=== PATIENT | female | born 1995 | race Two or more races ===

== ENCOUNTER 2017-09-14 15:30 | Inpatient (IN) | payer OTHER ==
[2017-09-14] MEDS ORDERED: TERBUTALINE SULFATE 1 MG/1 ML VIAL SQ ONE ×3 (16:00→16:20)
[2017-09-14] MEDS ORDERED: DEXTROSE 5%-LACTATED RINGERS 500 ML IV ONE (16:00)
[2017-09-14] MEDS ORDERED: DEXTROSE 5%-LACTATED RINGERS 1,000 ML IV ONE ×2 (17:00→19:00)
[2017-09-14] MEDS ORDERED: AMPICILLIN SODIUM 250 MG VIAL IVPUSH ONE (21:20)
[2017-09-14] MEDS ORDERED: AMPICILLIN - 2 GM in SODIUM CHLORIDE 100 ML IVPB ONE (22:00)
[2017-09-14] MEDS ORDERED: AMPICILLIN SODIUM 2 GM VIAL ONE (22:10)
[2017-09-14] MEDS ORDERED: DEXTROSE 5%-LACTATED RINGERS 1,000 ML IV SCH (23:00)
[2017-09-15 01:08] VITALS: BMI 25.9
[2017-09-15] MEDS ORDERED: AMPICILLIN SODIUM 1 GM VIAL ONE ×3 (01:54→09:41)
[2017-09-15] MEDS: AMPICILLIN - 1 GM in SODIUM CHLORIDE 100 ML IVPB SCH ×3 (02:00→09:48)
[2017-09-15] MEDS ORDERED: BUTORPHANOL TARTRATE 1 MG/ML VIAL ONE ×2 (03:23)
[2017-09-15] MEDS ORDERED: PROMETHAZINE HCL 25 MG/1 ML VIAL ONE (03:23)
[2017-09-15] MEDS ORDERED: BUTORPHANOL TARTRATE 1 MG/ML VIAL IVPB ONE (03:30)
[2017-09-15] MEDS ORDERED: PROMETHAZINE HCL 25 MG/1 ML VIAL IVPB ONE (03:30)
[2017-09-15 03:38] LABS: BASO % 0.1 % (0-2.0); EOS % 0.6 % (0-4.5); HEMATOCRIT 36.2 % (32.4-45.2); HEMOGLOBIN 12.5 GM/dL (10.7-15.3); LYMPH % 16.5 % (8-40); MCH 28.9 pg (25.7-33.7); MCHC 34.4 g/dl (32.0-36.0); MEAN PLT VOLUME 10.3 fl (7.5-11.1); MONO % 7.3 % (3.8-10.2); NEUT % 75.5 % (42.8-82.8); PLATELET COUNT 144 K/MM3 (134-434); RBC 4.31 M/mm3 (3.60-5.2); RDW 13.7 % (11.6-15.6); WHITE BLOOD COUNT 8.5 K/mm3 (4.0-10.0)
--- NOTE | 2017-09-15 03:49 | HP ---
Past Medical History - Admission Chief Complaint: Labor pain History of Present Illness: 22 yo , @ 36 weeks gestation, EDC 10/13/17, admitted for labor pain. Upon admission she was 5cm dilated with intact membrane. History Source: Patient Limitations to Obtaining History: No Limitations - Past Medical History ...: 2 ...Para: 0 ...Term: 0 ...: 0 ...Spon : 0 ...Induced : 1 ...Multiple Gestation: 0 ...LMP: 01/06/17 ... Weeks Gestation by Dates: 36.0 ...EDC by Dates: 10/13/17 ...EDC by Sono: 10/11/17 - Past Surgical History Past Surgical History: Yes: Appendectomy Hx Myomectomy: No Hx Transabdominal Cerclage: No - Smoking History Smoking history: Never smoked - Alcohol/Substance Use Hx Alcohol Use: No History of Substance Use: reports: None - Social History Usual Living Arrangement: Yes: With Parent History of Recent Travel: No Home Medications - Allergies Allergies/Adverse Reactions: Allergies Allergy/AdvReac Type Severity Reaction Status Date / Time No Known Drug Allergies Allergy Verified 09/14/17 16:26 - Home Medications Home Medications: Ambulatory Orders Vitamins (Sjr) - 1 tab PO DAILY 07/15/17 Ferrous Sulfate [Iron] 325 mg PO DAILY 09/13/17 Family Disease History - Family Disease History Family History: Unremarkable Review of Systems - Review of Systems Constitutional: reports: No Symptoms Eyes: reports: No Symptoms HENT: reports: No Symptoms Neck: reports: No Symptoms Cardiovascular: reports: No Symptoms Respiratory: reports: No Symptoms Gastrointestinal: reports: No Symptoms Genitourinary: reports: Pain Breasts: reports: No Symptoms Reported Musculoskeletal: reports: No Symptoms Integumentary: reports: No Symptoms Neurological: reports: No Symptoms Endocrine: reports: No Symptoms Hematology/Lymphatic: reports: No Symptoms Psychiatric: reports: No Symptoms Pain Intensity: 8 Physical Exam - Maternity Vital Signs: Vital Signs Temperature 98.9 F 09/15/17 00:00 Pulse Rate 105 H 09/15/17 00:00 Respiratory Rate 18 09/15/17 00:00 Blood Pressure 131/62 09/15/17 00:00 O2 Sat by Pulse Oximetry (%) Constitutional: Yes: Well Nourished Eyes: Yes: Conjunctiva Clear HENT: Yes: Atraumatic Neck: Yes: Supple Cardiovascular: Yes: Regular Rate and Rhythm Lungs: Clear to auscultation - Abdominal Exam/OB Number of Fetuses: Single Presentation: Vertex Contractions: Yes Regularity: Irregular Intensity: Mod/Strong - Vaginal Exam/OB Dilatation (cm): 5 Effacement (%): 90 Amniotic Membrane Status: Intact Presentation: Vertex/Position Station: -2 - Physical Exam ...Motor Strength: WNL Psychiatric: Yes: Alert, Oriented - Labs Lab Results: CBC, BMP 09/15/17 00:45 Problem List - Problems (1) delivery, delivered Code(s): O60.10X0 - LABOR W DELIVERY, UNSP TRIMESTER, UNSP Assessment/Plan labor Admit to L&D Analgesia as needed GBS prophylaxis Anticipate
[2017-09-15 03:52] LABS: INR 1.01 (0.82-1.09); PROTHROMBIN TIME (PATIENT) 11.4 SEC (9.7-13.0)
[2017-09-15 03:55] LABS: ACTIVATED PTT 26.4 SECONDS (26.9-34.4)
[2017-09-15 04:24] LABS: ANION GAP 8 (8-16); BLOOD UREA NITROGEN 5 mg/dL (7-18); CALCIUM 8.4 mg/dL (8.5-10.1); CHLORIDE 108 mmol/L (98-107); CO2 25 mmol/L (21-32); CREATININE 0.4 mg/dL (0.55-1.02); GLUCOSE,RANDOM 82 mg/dL (74-106); POTASSIUM 3.8 mmol/L (3.5-5.1); SODIUM 141 mmol/L (136-145)
[2017-09-15] MEDS ORDERED: FENTANYL/BUPIVACAINE/NS/PF - PCEA - 50 ML DISP.SYRIN EP ONE (07:14)
[2017-09-15] MEDS: ELECTROLYTE-148 SOLN 1,000 ML IV SCH ×2 (07:30→11:02)
[2017-09-15] MEDS ORDERED: BUPIVACAINE HCL/PF 0.25% (2.5MG/ML) 10 ML VIAL ONE (08:04)
[2017-09-15] MEDS ORDERED: LIDO 2%/EPI 1:200000 PRESRVFRE (20 ML SDVIAL) ONE (08:04)
[2017-09-15] MEDS ORDERED: OXYTOCIN 20 UNITS in 0.9% NS 20 UNIT/1,000 ML INFUS.BAG IV ONE (08:41)
[2017-09-15] MEDS ORDERED: OXYTOCIN 30 UNITS in 0.9% NS 30 UNIT/500 ML INFUS.BAG IVPB ONE (08:41)
--- NOTE | 2017-09-15 08:48 | PN ---
Progress Note (short form) - Note Progress Note: Patient is transferred by Dr León for labor management to Dr authorization manager Dr rausch 22 yrs 36.2/7 weeks, IUP ,s/p PROM since 2.50 AM & labor.Onset LP 3.00 AM Stadol 2 g + phenrgan 25 MG iv stat one dose was given pt receiving prophylactic iv ampicillin for gbs prophylaxis she was being tocolysed with terbutaline & iv hydration 09/14/17, she returned with prom pt has uc irregular 2-3 -5 -7 min dysfunctional , FHR 140-150 cat 1, sometimes variable decels , cat-2 Epidural labor analgesia was given at 8.00 AM 8.35 AM Cx 4 cm/90%/MR /vx -1 /pelvis adequate Selected Entries 09/15/17 07:00 Temperature Oral Source Pulse Rate 102 H Blood Pressure 134/79 Laboratory Tests 09/15/17 09/15/17 09/15/17 00:45 00:45 00:45 WBC 8.5 Hgb 12.5 Hct 36.2 Plt Count 144 PT with INR 11.40 INR 1.01 PTT (Actin FS) 26.4 L Sodium 141 Potassium 3.8 Chloride 108 H Carbon Dioxide 25 BUN 5 L Creatinine 0.4 L Random Glucose 82 HIV 1&2 Antibody Screen HIV P24 Antigen Blood Type 09/15/17 09/15/17 00:45 00:45 WBC Hgb Hct Plt Count PT with INR INR PTT (Actin FS) Sodium Potassium Chloride Carbon Dioxide BUN Creatinine Random Glucose HIV 1&2 Antibody Screen Negative HIV P24 Antigen Negative Blood Type O NEGATIVE Plan pitoci Augmentation
[2017-09-15] MEDS ORDERED: OXYTOCIN 30 UNITS in 0.9% NS 30 UNIT/500 ML INFUS.BAG IVPB SCH (09:00)
[2017-09-15] MEDS ORDERED: NALOXONE HCL 0.4 MG/ML VIAL IVPUSH PRN (10:12)
[2017-09-15] MEDS ORDERED: FENTANYL/BUPIVACAINE/NS/PF - PCEA - 50 ML DISP.SYRIN EP SCH ×2 (10:15→10:48)
--- NOTE | 2017-09-15 11:15 | PN ---
Progress Note, Labor Vaginal Exam #1 Labor Exam Date: 09/15/17 Labor Exam Time: 11:05 Heart Rate (range): 130-140 Dilatation: 9 Effacement (%): 100 Amniotic Membrane Status: Ruptured Presentation: Vertex/Position Station: +2 Remarks: FHR cat-1 Uc 2-3 min regular pitocin 8 ml/hr epidural in progress ampicillin total 4 doses received Selected Entries 09/15/17 09/15/17 10:55 11:00 Temperature 99.3 F Pulse Rate 105 H Blood Pressure 116/51 Vaginal Exam #2 Labor Exam Date: 09/15/17 Labor Exam Time: 12:15 Heart Rate (range): 130 Dilatation: 10 Effacement (%): 100 Amniotic Membrane Status: Ruptured Presentation: Vertex/Position Station: +3 Remarks: fhr cat-1 pt pushing Selected Entries 09/15/17 12:00 Temperature 98.6 F Pulse Rate 110 H Blood Pressure 127/72
[2017-09-15] MEDS ORDERED: WITCH HAZEL 50% (TUCKS) 40 PAD/JAR PAD TP PRN (12:47)
[2017-09-15] MEDS ORDERED: IBUPROFEN 600 MG TABLET (FP) PO PRN (12:47)
[2017-09-15] MEDS ORDERED: METHYLERGONOVINE MALEATE 0.2 MG/1 ML AMP IM PRN (12:47)
[2017-09-15] MEDS ORDERED: BENZOCAINE 28 GM HEMORRHOIDAL OINTMENT TP PRN (12:47)
[2017-09-15] MEDS ORDERED: BISACODYL 10 MG SUPP.RECT RC PRN (12:47)
[2017-09-15] MEDS ORDERED: BENZOCAINE 20% 57 GM BOTTLE TP PRN (12:47)
[2017-09-15] MEDS ORDERED: OXYTOCIN 20 UNITS in 0.9% NS 20 UNIT/1,000 ML INFUS.BAG IV SCH (13:00)
--- NOTE | 2017-09-15 13:01 | PN ---
Delivery - Delivery Vaginal Delivery: No Problems, Spontaneous (baby girl delievered in [place] position , caput, cord around ant shouder released before delivery of shoulder , immediate oral & nasal suction was done .) Type of Anesthesia: Epidural Episiotomy/Laceration: None EBL (cc): 250 Delivery, Single - Stages of Labor Date 1st Stage Initiatied: 09/15/17 Time 1st Stage Initiated: 03:00 Date 2nd Stage Initiated: 09/15/17 Time 2nd Stage Initiated: 12:15 Date of Delivery: 09/15/17 Time of Delivery: 12:26 Time Placenta Delivered: 12:28 Placenta: Yes: Spontaneous, Uterine Exploration - Condition of Inspector Plumbing/Auto Cleaner Present: No Infant Gender: Female Weight: 5 lb 6 oz Position: Left, OA Total Hours ROM (Hrs/Mins): [id number] - 1 Minute Total Score: 8 5 Minutes Total Score: 9 - [place] Feeding Plan Initial Plan: Elected not to breastfeed exclusively throughout hospitalization Remarks - Remarks Remarks: 22 yrs , 36.2 weeks admitted for PROM she received total 4 doses of Iv ampicillin for GBS prophylaxis . stadol 2 mg + phenrgan 25 mg iv followed by epidural for labor analgesia was given intrapartum course was uneventful
[2017-09-15 13:19] LABS: ARTERIAL BLD GAS O2 SATURATION 19.9 % (90-98.9); ARTERIAL BLOOD GAS BASE EXCESS -1.9 meq/l (-2-2); ARTERIAL BLOOD GAS PCO2 63.1 mmHg (35-45); ARTERIAL BLOOD GAS PO2 15.1 mmHg (80-100); ARTERIAL BLOOD GAS pH 7.25 (7.35-7.45)
[2017-09-15 13:29] LABS: VENOUS PH 7.4 (7.32-7.42)
[2017-09-15 13:30] LABS: VENOUS PC02 36.6 mmHg (38-52); VENOUS PO2 39.6 mmHg (28-48)
[2017-09-15 13:40] LABS: COCAINE, UR NEGATIVE ng/ml (CUTOFF=300); METHADONE, UR NEGATIVE ng/ml (CUTOFF=300); OPIATES, URI NEGATIVE ng/ml (CUTOFF=300); PHENCYCLIDINE,URINE NEGATIVE ng/ml (CUTOFF=25); URINE AMPHETAMINES NEGATIVE ng/ml (CUTOFF=500); URINE BARBITURATES NEGATIVE ng/ml (CUTOFF=200); URINE BENZODIAZEPINES NEGATIVE ng/ml (CUTOFF=200)
[2017-09-15] MEDS: ACETAMINOPHEN 325 MG TABLET (FP) PO PRN (16:22)
[2017-09-15] MEDS: IBUPROFEN 600 MG TABLET (FP) PO PRN (16:23)
[2017-09-15] MEDS: FERROUS SO4 325 MG TABLET (FP) PO SCH (16:48)
[2017-09-16] MEDS: IBUPROFEN 600 MG TABLET (FP) PO PRN ×3 (02:34→23:39)
[2017-09-16] MEDS: ACETAMINOPHEN 325 MG TABLET (FP) PO PRN ×3 (02:35→23:39)
[2017-09-16] MEDS: FERROUS SO4 325 MG TABLET (FP) PO SCH ×2 (08:04→17:18)
--- NOTE | 2017-09-16 08:05 | PN ---
Progress Note (short form) - Note Progress Note: ppd 1 doing well, no c/o, voids ok, no excess vaginal bleedingabdomen soft, non tender uterus firm lochia mild no calf tenderness plan ambulate , cbc
[2017-09-16 08:07] LABS: BASO % 0.3 % (0-2.0); EOS % 1.8 % (0-4.5); HEMATOCRIT 39.9 % (32.4-45.2); HEMOGLOBIN 13.3 GM/dL (10.7-15.3); LYMPH % 15.9 % (8-40); MCH 28.4 pg (25.7-33.7); MCHC 33.4 g/dl (32.0-36.0); MEAN CELL VOLUME 85.1 fl (80-96); MEAN PLT VOLUME 9.5 fl (7.5-11.1); MONO % 7.4 % (3.8-10.2); NEUT % 74.6 % (42.8-82.8); PLATELET COUNT 154 K/MM3 (134-434); RBC 4.69 M/mm3 (3.60-5.2); RDW 13.7 % (11.6-15.6); WHITE BLOOD COUNT 10.4 K/mm3 (4.0-10.0)
[2017-09-16] MEDS: PRENATAL VITAMINS W/ FOLIC ACID TABLET (FP) PO SCH (09:38)
[2017-09-16] MEDS ORDERED: SENNOSIDES/DOCUSATE COMBO (SENNA PLUS) TABLET (UD) PO PRN (22:00)
[2017-09-17] MEDS: FERROUS SO4 325 MG TABLET (FP) PO SCH ×2 (08:16→18:16)
[2017-09-17] MEDS: PRENATAL VITAMINS W/ FOLIC ACID TABLET (FP) PO SCH (10:00)
--- NOTE | 2017-09-17 11:20 | PN ---
Post Progress Note - Subjective Subjective: Pt feeling well. Very tearful because baby was born at 36 weeks and cannot go home today; is slightly jaundiced. Otherwise fine Post Day: 2 Type of Delivery: Vital Signs: Vital Signs Temperature 97.7 F 09/16/17 21:07 Pulse Rate 84 09/16/17 21:07 Respiratory Rate 20 09/16/17 21:07 Blood Pressure 140/76 09/16/17 21:07 O2 Sat by Pulse Oximetry (%) 100 09/15/17 13:30 Breast Exam: Yes: Soft Uterus: Yes: Fundus Firm Abdomen/GI: Yes: Abdomen soft Lochia: Yes: Rubra Lochia, amount: Small Extremities: Yes: Calves non-tender Activity: Ambulating - Labs Labs: CBC WBC 10.4 K/mm3 (4.0-10.0) H 09/16/17 06:50 RBC 4.69 M/mm3 (3.60-5.2) 09/16/17 06:50 Hgb 13.3 GM/dL (10.7-15.3) 09/16/17 06:50 Hct 39.9 % (32.4-45.2) 09/16/17 06:50 MCV 85.1 fl (80-96) 09/16/17 06:50 MCH 28.4 pg (25.7-33.7) 09/16/17 06:50 MCHC 33.4 g/dl (32.0-36.0) 09/16/17 06:50 RDW 13.7 % (11.6-15.6) 09/16/17 06:50 Plt Count 154 K/MM3 (134-434) 09/16/17 06:50 MPV 9.5 fl (7.5-11.1) 09/16/17 06:50 Neutrophils % 74.6 % (42.8-82.8) 09/16/17 06:50 Lymphocytes % 15.9 % (8-40) 09/16/17 06:50 Monocytes % 7.4 % (3.8-10.2) 09/16/17 06:50 Eosinophils % 1.8 % (0-4.5) D 09/16/17 06:50 Basophils % 0.3 % (0-2.0) 09/16/17 06:50 Problem List - Problems (1) care following vaginal delivery Assessment/Plan: Pt PPD#2 s/p at 36 weeks -received rhogam (baby rh +) -plan for discharge home tomorrow -npv x 6 weeks f/u pp visit in 4 weeks Code(s): Z39.2 - ENCOUNTER FOR ROUTINE FOLLOW-UP
[2017-09-18] MEDS: FERROUS SO4 325 MG TABLET (FP) PO SCH (08:00)
[2017-09-18] MEDS: PRENATAL VITAMINS W/ FOLIC ACID TABLET (FP) PO SCH (10:38)
[2017-09-18 11:42] VITALS: BP 129/84; PULSE 94; TEMP 98.3
--- NOTE | 2017-09-22 13:19 | DS ---
Physical Exam-BATCH BLENDER Vital Signs: Vital Signs Temperature 98.3 F 09/18/17 10:00 Pulse Rate 94 H 09/18/17 10:00 Respiratory Rate 18 09/18/17 10:00 Blood Pressure 129/84 09/18/17 10:00 O2 Sat by Pulse Oximetry (%) 100 09/15/17 13:30 Constitutional: Yes: Well Nourished Eyes: Yes: WNL HENT: Yes: WNL Neck: Yes: WNL Cardiovascular: Yes: WNL Respiratory: Yes: WNL Gastrointestinal: Yes: WNL ...Rectal Exam: Yes: WNL Renal/: Yes: WNL ....Post : Yes: Uterus firm, Uterus non-tender, Moderate lochia rubra ( perineum intact, epi wound healing) Breast(s): Yes: WNL (breast & bottle feeding) Musculoskeletal: Yes: WNL Extremities: Yes: WNL. No: Calf Tenderness Integumentary: Yes: WNL Neurological: Yes: WNL, Alert, Oriented ...Motor Strength: WNL Labs: CBC, BMP 09/16/17 06:50 09/15/17 00:45 Delivery - Delivery Vaginal Delivery: No Problems, Spontaneous (baby girl delievered in [place] position , caput, cord around ant shouder released before delivery of shoulder , immediate oral & nasal suction was done .) Type of Anesthesia: Epidural Episiotomy/Laceration: None EBL (cc): 250 Delivery, Single - Stages of Labor Date 1st Stage Initiatied: 09/15/17 Time 1st Stage Initiated: 03:00 Date 2nd Stage Initiated: 09/15/17 Time 2nd Stage Initiated: 12:15 Date of Delivery: 09/15/17 Time of Delivery: 12:26 Time Placenta Delivered: 12:28 Placenta: Yes: Spontaneous, Uterine Exploration - Condition of Infant Broadcast Technician/Hospital Aide Present: No Infant Gender: Female Weight: 5 lb 6 oz Position: Left, OA Total Hours ROM (Hrs/Mins): [id number] - 1 Minute Total Score: 8 5 Minutes Total Score: 9 - Feeding Plan Initial Plan: Elected not to breastfeed exclusively throughout hospitalization Remarks - Remarks Remarks: 22 yrs , 36.2 weeks admitted for PROM she received total 4 doses of Iv ampicillin for GBS prophylaxis . stadol 2 mg + phenrgan 25 mg iv followed by epidural for labor analgesia was given intrapartum course was uneventful pp mcourse uneventful baby was retained due to O2 lo sats . pt was veryupset , crying & depressed , hence Dr Telles kept her for obsrvation on 09/17/17 & discharged her on 09/18/17 Discharge Summary Reason For Visit: ADMIT LABOR Condition: Stable - Instructions Diet, Activity, Other Instructions: Post Instructions DIET: Continue good diet high in protein, calcium, and iron rich foods. Drink at least eight (8) glasses of water daily in addition to other fluids. ___ Regular diet MEDICATIONS: Continue vitamins and iron as previously directed. Motrin and Tylenol may be taken for minor discomfort. ACTIVITY: Mild to moderate exercise may be started in two (2) weeks. Take frequent rest periods. Resume normal activity after six (6) week check up. WOUND CARE OF OPERATIVE SITE: Continue use of perineal bottle until vaginal discharge stops. Keep area clean. Shower daily. Keep abdominal wound dry. Report any drainage or redness to physician. Tub baths, tampons and douches are not permitted for [address] Breast feeding & or Bottle feeding BREAST CARE: (For those that are not breast feeding): If engorgement occurs: Wear tight fitting bra. Take Tylenol or Motrin for pain. Apply cold packs (ice in bags to each breast ) FAMILY PLANNING: There are many control alternatives to pursue and they should be discussed at your first office visit. You may resume sexual activity after your six (6) week check up. (Remember, breast feeding is not a contraceptive) NEXT PHYSICIAN APPOINTMENT: Be certain to call for a six (6) week appointment, unless otherwise directed. Call Clinic or got to Emergency Dept if you have any of the following: Heavy vaginal bleeding Painful urination Leg pain Unusual odor noted to vaginal bleeding High fever Red streaking noted on breast follow up in [facility] tomorrow as scheduled. return to L&D if you experience any of the following: -regular contractions -decreased movement -your water breaks -vaginal bleeding call L&D with questions or concerns [phone]. Referrals: Yahaira Pina MD [Staff Physician] - Disposition: HOME - Home Medications Comprehensive Discharge Medication List: Ambulatory Orders Vitamins (Sjr) - 1 tab PO DAILY 07/15/17 Ferrous Sulfate [Iron] 325 mg PO DAILY 09/13/17 Acetaminophen [Tylenol .Regular Strength -] 650 mg PO Q3H PRN tablet 09/15/17 Ferrous Sulfate [Feosol] 325 mg PO BIDWM tab 09/15/17 Ibuprofen [Motrin -] 200 mg PO Q4H PRN tablet 09/15/17 Ibuprofen [Motrin -] 200 mg PO Q4H PRN tablet 09/15/17 Vitamins (Sjr) - 1 tab PO DAILY #30 tablet 09/15/17
== END 2017-09-18 13:55 | disposition home or self-care (01) | DRG 560 ==
LOC: JDEL 15:30 → JLDR 09-15 00:15 → J3W 09-15 14:21
PROVIDERS: ADMIT Obstetrics & Gynecology; ATTEND Obstetrics & Gynecology
PROC: 10E0XZZ Delivery of Products of Conception, External Approach (ICD-10-PCS; principal; 2017-09-15)
PROC: 3E0334Z Introduction of Serum, Toxoid and Vaccine into Peripheral Vein, Percutaneous Approach (ICD-10-PCS; 2017-09-16)
DX: O60.14X0 Preterm labor third trimester with preterm delivery third trimester, not applicable or unspecified (principal); Z3A.36 36 weeks gestation of pregnancy; O26.893 Other specified pregnancy related conditions, third trimester; Z67.91 Unspecified blood type, Rh negative; Z37.0 Single live birth
CPT/HCPCS: 36415; 36600; 59025; 59409; 80048; 80307; 82803; 85025; 85461; 85610; 85730; 86593; 86850; 86870; 86900; 86901; 86902; 86999; 87389